=== PATIENT | male | born 1935 | race Caucasian/White ===

== ENCOUNTER 2017-07-04 19:31 | Emergency (ER) | payer MEDICARE, BC ==
[~2017-07-04] VITALS: Ht 175.3 cm; Wt 77.1 kg
[~2017-07-04 19:31] MED LIST: AMLO5 PO; AMOCLA875 PO; ASPI325EC PO; ASPI81EC PO; ATOR40TA PO; BUDE200IP IH; CEPH500 PO; CLIN300 PO; CLOP75 PO; CYAN1000 PO; DEPRESSION MED; DICL75ER PO; DIGO.25 PO; DOCU100 PO; DOES NOT KNOW MEDS; FENO160 PO; FLUO20 PO; HYDACE10B PO; HYDACE5 PO; ISOMON30 PO; LISI20 PO; LISI5 PO; LOPE2C PO; METCAR500 PO; METO100ER PO; METR500 PO; MIRT15 PO; MISO200 PO; MODA200 PO; NITR.4SL SL; NITR.6SL SL; OMEP20ER PO; OXYACE5T PO; OXYC5 PO; RANI150 PO; RANO500T PO; RXCEPH500 PO; RXHYDACE PO; SALS750 PO; SILSUL1TC TOP; SIMV20 PO; SIMV40 PO; TERA5 PO; VALD20 PO; WARF2.5 PO; WARF5 PO; [UNRECOGNIZED DRUG - REMARK]
[2017-07-04 20:00] LABS: BASOPHILS ABSOLUTE AUTO 0.02 K/mm3 (0.00-0.23); BASOPHILS PERCENT AUTO 0 % (0-2); EOSINOPHILS ABSOLUTE AUTO 0.27 K/mm3 (0.00-0.68); EOSINOPHILS PERCENT AUTO 4 % (0-6); Hematocrit 41.7 % (37.0-53.0); Hemoglobin 13.7 g/dL (13.5-17.5); IMMATURE GRAN ABSOLUTE AUTO 0.02 K/mm3 (0.00-0.10); IMMATURE GRAN PERCENT AUTO 0 % (0-1); LYMPHOCYTES ABSOLUTE AUTO 1.71 K/mm3 (0.84-5.20); LYMPHOCYTES PERCENT AUTO 23 % (21-46); MONOCYTES ABSOLUTE AUTO 0.67 K/mm3 (0.16-1.47); MONOCYTES PERCENT AUTO 9 % (4-13); Mean Corpuscular HGB 30.2 pg (26.0-34.0); Mean Corpuscular HGB Conc 32.9 g/dL (31.5-36.5); Mean Corpuscular Volume 92 fL (80-100); Mean Platelet Volume 10.1 fL (9.1-12.4); NEUTROPHILS ABSOLUTE AUTO 4.81 K/mm3 (1.96-9.15); NEUTROPHILS PERCENT AUTO 64 % (41-73); Platelet Count 129 K/mm3 (150-400); RDW Coefficient Variation 12.5 % (11.7-14.2); RDW Standard Deviation 42.3 fL (35.1-46.3); Red Blood Cell Count 4.53 M/mm3 (4.30-5.90)
[2017-07-04] MEDS ORDERED: Prozac20 MG (20:08)
[2017-07-04] MEDS ORDERED: PYRIDOXINE HCL100 MG PO (20:08)
[2017-07-04 20:19] LABS: Albumin, Blood 2.8 g/dL (3.4-5.0); Albumin/Globulin Ratio 0.7 (0.8-1.8); Bilirubin, Total 0.4 mg/dL (0.1-1.0); Bun/Creatinine Ratio 16.1 (12.0-20.0); Calcium, Blood 9.9 mg/dL (8.5-10.1); Creatinine, Blood 1.49 mg/dL (0.60-1.20); Potassium, Blood 3.9 mmol/L (3.5-5.5); Total Protein, Blood 6.8 g/dL (6.4-8.2); Troponin I 0.323 ng/mL (0.000-0.040)
[2017-07-04 20:58] LABS: Influenza A Negative (NEGATIVE); Influenza B Negative (NEGATIVE)
[2017-07-04] MEDS ORDERED: Augmentin 875-1 EACH PO (21:22)
[2017-07-04] MEDS ORDERED: PRED10 PO (21:22)
== END 2017-07-04 21:41 | disposition home or self-care (01) ==
LOC: ER 19:31
PROVIDERS: Emergency Medicine
DX: J32.9 Chronic sinusitis, unspecified (principal); J44.9 Chronic obstructive pulmonary disease, unspecified; J98.01 Acute bronchospasm; R79.89 Other specified abnormal findings of blood chemistry; I10 Essential (primary) hypertension; I25.10 Atherosclerotic heart disease of native coronary artery without angina pectoris; I48.0 Paroxysmal atrial fibrillation; E78.5 Hyperlipidemia, unspecified; Z87.891 Personal history of nicotine dependence; Z79.899 Other long term (current) drug therapy; Z79.01 Long term (current) use of anticoagulants
CPT/HCPCS: 36415; 70450; 71046; 71250; 80053; 84484; 85025; 87804; 93005; 93010; 94640; 96374; 99284; J2930

== ENCOUNTER 2019-04-10 11:43 | Emergency (ER) | payer OTHER, MEDICARE, BC ==
[~2019-04-10] VITALS: Ht 177.8 cm; Wt 81.7 kg
[~2019-04-10 11:43] MED LIST changes: +Augmentin 875-1 EACH PO; +PRED10 PO; +PYRIDOXINE HCL100 MG PO; +Prozac20 MG
[2019-04-10] MEDS ORDERED: CODEINE-GUAIFE120 ML PO (13:25)
== END 2019-04-10 13:32 | disposition home or self-care (01) ==
LOC: ER 11:43
DX: R05 Cough (principal); J44.9 Chronic obstructive pulmonary disease, unspecified; I10 Essential (primary) hypertension; I48.0 Paroxysmal atrial fibrillation; I25.810 Atherosclerosis of coronary artery bypass graft(s) without angina pectoris; N40.0 Benign prostatic hyperplasia without lower urinary tract symptoms; I25.2 Old myocardial infarction; E78.5 Hyperlipidemia, unspecified; Z79.899 Other long term (current) drug therapy
CPT/HCPCS: 99283

== ENCOUNTER 2019-11-20 10:56 | Emergency (ER) | payer OTHER, BC ==
[~2019-11-20] VITALS: Ht 177.8 cm; Wt 91.6 kg
[~2019-11-20 10:56] MED LIST changes: +CODEINE-GUAIFE120 ML PO; +ONDA4ODT MM
[2019-11-20] MEDS ORDERED: Ultram50 MG PO (15:01)
== END 2019-11-20 15:20 | disposition home or self-care (01) ==
LOC: ER 10:56
DX: M79.89 Other specified soft tissue disorders (principal); M79.671 Pain in right foot; Z79.899 Other long term (current) drug therapy; Z79.2 Long term (current) use of antibiotics; I11.0 Hypertensive heart disease with heart failure; I50.9 Heart failure, unspecified; I25.2 Old myocardial infarction; E11.9 Type 2 diabetes mellitus without complications; J44.9 Chronic obstructive pulmonary disease, unspecified; E78.5 Hyperlipidemia, unspecified
CPT/HCPCS: 73562-RT; 73600; 73630; 93971; 99284-25

== ENCOUNTER 2020-05-23 12:55 | Emergency (ER) | payer OTHER, BC ==
[~2020-05-23] VITALS: Ht 177.8 cm; Wt 81.7 kg
[~2020-05-23 12:55] MED LIST changes: +Ultram50 MG PO
[2020-05-23 13:25] LABS: BASOPHILS ABSOLUTE AUTO 0.04 K/mm3 (0.00-0.23); BASOPHILS PERCENT AUTO 1 % (0-2); EOSINOPHILS ABSOLUTE AUTO 0.22 K/mm3 (0.00-0.68); EOSINOPHILS PERCENT AUTO 3 % (0-6); Hematocrit 43.9 % (37.0-53.0); Hemoglobin 13.9 g/dL (13.5-17.5); IMMATURE GRAN ABSOLUTE AUTO 0.03 K/mm3 (0.00-0.10); IMMATURE GRAN PERCENT AUTO 0 % (0-1); LYMPHOCYTES ABSOLUTE AUTO 1.41 K/mm3 (0.84-5.20); LYMPHOCYTES PERCENT AUTO 18 % (21-46); MONOCYTES ABSOLUTE AUTO 0.67 K/mm3 (0.16-1.47); MONOCYTES PERCENT AUTO 8 % (4-13); Mean Corpuscular HGB 29.9 pg (26.0-34.0); Mean Corpuscular HGB Conc 31.7 g/dL (31.5-36.5); Mean Corpuscular Volume 94 fL (80-100); Mean Platelet Volume 9.8 fL (9.1-12.4); NEUTROPHILS ABSOLUTE AUTO 5.59 K/mm3 (1.96-9.15); NEUTROPHILS PERCENT AUTO 70 % (41-73); Platelet Count 200 K/mm3 (150-400); RDW Coefficient Variation 12.8 % (11.7-14.2); RDW Standard Deviation 43.6 fL (35.1-46.3); Red Blood Cell Count 4.65 M/mm3 (4.30-5.90); White Blood Cell Count 7.96 K/mm3 (4.00-11.30)
[2020-05-23 13:44] LABS: Albumin, Blood 3.1 g/dL (3.4-5.0); Albumin/Globulin Ratio 0.8 (0.8-1.8); Bilirubin, Total 0.5 mg/dL (0.1-1.0); Calcium, Blood 10.7 mg/dL (8.5-10.1); Creatinine, Blood 1.27 mg/dL (0.60-1.20); Globulin, Blood 4.1 g/dL (2.2-4.0); Potassium, Blood 3.8 mmol/L (3.5-5.5); Total Protein, Blood 7.2 g/dL (6.4-8.2); Troponin I 0.077 ng/mL (0.000-0.040)
[2020-05-23 14:34] LABS: Source, Urine Clean Catch
[2020-05-23 14:49] LABS: Appearance, Urine Clear (Clear); Blood, Urine Neg (Neg); Color, Urine Yellow (P-Yellow); Glucose Qualitative, Urine Neg (Neg); Ketones, Urine Neg (Neg); Leukocyte Esterase, Urine 1+ (Neg); Nitrite, Urine Neg (Neg); Protein, Urine 2+ (Neg); Urobilinogen, Urine 1+ (Normal)
[2020-05-23 14:56] LABS: Bilirubin, Urine 1+ (Neg)
[2020-05-23 14:58] LABS: Calcium Oxalate Crystals Mod /hpf; Mucus Mod (0-Heavy)
[2020-05-23 14:59] LABS: Red Blood Cells, Urine 0-2 /hpf (0-2); White Blood Cells, Urine 0-2 /hpf (0-5)
[2020-05-23 15:00] LABS: Bacteria Mod /hpf; Hyaline Casts 0-2 /lpf (0-2); Squamous Epithelial Cells Not Seen /hpf (Few)
== END 2020-05-23 16:57 | disposition left against medical advice (07) ==
LOC: ER 12:55
PROVIDERS: Emergency Medicine
DX: R55 Syncope and collapse (principal); Z53.21 Procedure and treatment not carried out due to patient leaving prior to being seen by health care provider
CPT/HCPCS: 36415; 71046; 80053; 81001; 83880; 84484; 85025; 87086; 93005; 93010

== ENCOUNTER 2020-05-27 17:08 | Emergency (ER) | payer OTHER, BC ==
[~2020-05-27] VITALS: Ht 172.7 cm; Wt 81.7 kg
[2020-05-27 17:42] LABS: BASOPHILS ABSOLUTE AUTO 0.02 K/mm3 (0.00-0.23); BASOPHILS PERCENT AUTO 0 % (0-2); EOSINOPHILS ABSOLUTE AUTO 0.18 K/mm3 (0.00-0.68); EOSINOPHILS PERCENT AUTO 3 % (0-6); Hematocrit 39.2 % (37.0-53.0); Hemoglobin 12.4 g/dL (13.5-17.5); IMMATURE GRAN ABSOLUTE AUTO 0.01 K/mm3 (0.00-0.10); IMMATURE GRAN PERCENT AUTO 0 % (0-1); LYMPHOCYTES ABSOLUTE AUTO 1.31 K/mm3 (0.84-5.20); LYMPHOCYTES PERCENT AUTO 22 % (21-46); MONOCYTES PERCENT AUTO 10 % (4-13); Mean Corpuscular HGB 29.6 pg (26.0-34.0); Mean Corpuscular HGB Conc 31.6 g/dL (31.5-36.5); Mean Corpuscular Volume 94 fL (80-100); Mean Platelet Volume 10.1 fL (9.1-12.4); NEUTROPHILS PERCENT AUTO 65 % (41-73); Platelet Count 178 K/mm3 (150-400); RDW Coefficient Variation 12.5 % (11.7-14.2); RDW Standard Deviation 43.5 fL (35.1-46.3); Red Blood Cell Count 4.19 M/mm3 (4.30-5.90); White Blood Cell Count 6.02 K/mm3 (4.00-11.30)
[2020-05-27 17:55] LABS: Albumin, Blood 2.9 g/dL (3.4-5.0); Albumin/Globulin Ratio 0.8 (0.8-1.8); Bilirubin, Total 0.4 mg/dL (0.1-1.0); Bun/Creatinine Ratio 12.1 (12.0-20.0); Calcium, Blood 10.2 mg/dL (8.5-10.1); Creatinine, Blood 1.4 mg/dL (0.60-1.20); Globulin, Blood 3.7 g/dL (2.2-4.0); Potassium, Blood 4.5 mmol/L (3.5-5.5); Total Protein, Blood 6.6 g/dL (6.4-8.2)
[2020-05-27] MEDS ORDERED: ELIQUIS2.5 MG PO (18:39)
[2020-05-27] MEDS ORDERED: ATOR20 PO (18:39)
[2020-05-27] MEDS ORDERED: CARVEDILOL12.5 MG PO (18:40)
[2020-05-27] MEDS ORDERED: THERA-D2000 UNIT PO (18:40)
[2020-05-27] MEDS ORDERED: ONDA4ODT MM (18:41)
[2020-05-27] MEDS ORDERED: PANT40 PO (18:41)
[2020-05-27] MEDS ORDERED: PREG100 PO (18:42)
[2020-05-27] MEDS ORDERED: SALONPAS PATCH1 EACH TOP (18:47)
== END 2020-05-27 20:09 | disposition home or self-care (01) ==
LOC: ER 17:08
PROVIDERS: Emergency Medicine
DX: R55 Syncope and collapse (principal); K62.5 Hemorrhage of anus and rectum; I11.0 Hypertensive heart disease with heart failure; J44.9 Chronic obstructive pulmonary disease, unspecified; E78.00 Pure hypercholesterolemia, unspecified; Z79.51 Long term (current) use of inhaled steroids; Z79.899 Other long term (current) drug therapy; Z79.01 Long term (current) use of anticoagulants
CPT/HCPCS: 80053; 83690; 85025; 93005; 93010; 96374; 99284-25; C9113

== ENCOUNTER 2020-06-03 10:11 | Day surgery (SDC) | payer OTHER, BC ==
[~2020-06-03] VITALS: Ht 177.8 cm; Wt 78.4 kg
[~2020-06-03 10:11] MED LIST changes: +ATOR20 PO; +CARVEDILOL12.5 MG PO; +ELIQUIS2.5 MG PO; +PANT40 PO; +PREG100 PO; +SALONPAS PATCH1 EACH TOP; +THERA-D2000 UNIT PO
== END 2020-06-03 12:13 | disposition home or self-care (01) ==
LOC: ORSCSDS 10:11
PROVIDERS: Internal Medicine Gastroenterology
PROC: 0DBL8ZX Excision of Transverse Colon, Via Natural or Artificial Opening Endoscopic, Diagnostic (ICD-10-PCS; principal; 2020-06-03 11:45)
DX: K62.5 Hemorrhage of anus and rectum (principal); K62.6 Ulcer of anus and rectum; D12.3 Benign neoplasm of transverse colon; K57.30 Diverticulosis of large intestine without perforation or abscess without bleeding; R93.89 Abnormal findings on diagnostic imaging of other specified body structures; I48.91 Unspecified atrial fibrillation; I25.2 Old myocardial infarction; J44.9 Chronic obstructive pulmonary disease, unspecified; G47.33 Obstructive sleep apnea (adult) (pediatric); Z79.01 Long term (current) use of anticoagulants; Z79.899 Other long term (current) drug therapy
CPT/HCPCS: 88305; J2370; J2704; J7120

== ENCOUNTER 2020-07-03 09:38 | Day surgery (SDC) | payer OTHER, BC ==
[~2020-07-03] VITALS: Ht 177.8 cm; Wt 79.7 kg
== END 2020-07-03 11:52 | disposition home or self-care (01) ==
LOC: ORSCSDS 09:38
PROVIDERS: Internal Medicine Gastroenterology
PROC: 0DBP8ZX Excision of Rectum, Via Natural or Artificial Opening Endoscopic, Diagnostic (ICD-10-PCS; principal; 2020-07-03 10:45)
DX: R93.3 Abnormal findings on diagnostic imaging of other parts of digestive tract (principal); K62.6 Ulcer of anus and rectum; K64.8 Other hemorrhoids; I10 Essential (primary) hypertension; Z79.01 Long term (current) use of anticoagulants; Z79.82 Long term (current) use of aspirin; Z79.899 Other long term (current) drug therapy
CPT/HCPCS: 88305; J2704; J7120

== ENCOUNTER 2020-10-21 08:24 | Day surgery (SDC) | payer OTHER, BC ==
[~2020-10-21] VITALS: Ht 175.3 cm; Wt 81.0 kg
[2020-10-21] MEDS ORDERED: Isosorbide Mono30 MG PO (09:07)
[2020-10-21] MEDS ORDERED: Prozac40 MG PO (09:07)
[2020-10-21] MEDS ORDERED: METO25ER PO (09:08)
[2020-10-21] MEDS ORDERED: MECL25 PO (09:08)
[2020-10-21] MEDS ORDERED: ROSU10TA PO (09:08)
--- NOTE | 2020-10-21 09:34 | NUR ---
LUNG TONES COARSE ALL SOLARES WITH CONGESTED COUGH. PT DENIES CP. CALL LIGHT IN REACH.
--- NOTE | 2020-10-21 14:05 | NUR ---
PT RETURNED TO RECOVERY ROOM IN BED. RIGHT GROIN SITE SOFT NON-TENDER WITH NO HEMATOMA, NO PULSATILE BLEEDING WITH INTACT DRESSING/ERLINDA WITH SLIGHT TRACK OOZING NOTED. CALL LIGHT IN REACH.
--- NOTE | 2020-10-21 14:06 | NUR ---
SP02 PROBE ON RIGHT TOE.
--- NOTE | 2020-10-21 16:06 | NUR ---
patient resing, responds appropriately, right groin soft and nontender. dressing dry and intact. pulses 2+
--- NOTE | 2020-10-21 16:22 | NUR ---
Dr Daniels here to speak to patient and assess site. Ok to get patient up at 6PM and ambulate.
--- NOTE | 2020-10-21 16:32 | NUR ---
Home Health notified of referral from Dr Daniels for patient.
--- NOTE | 2020-10-21 16:45 | NUR ---
PHONED PATIENTS WITH AND UPDATE. GAVE HER DISCHARGE INFORAMTION OVER THE PHONE. QUESTIONS ANSWERED.
--- NOTE | 2020-10-21 17:01 | NUR ---
HOB NOW UP TO 40 DEGREE ANGLE. PATIENT WATCHING TV. RIGHT GROIN SITE UNCHANGED. DP AND TP 2-2+.
--- NOTE | 2020-10-21 18:04 | NUR ---
PATIENT AMBULATED IN RECOVERY ROOM AND RETURNED TO BED. RIGHT GROIN SITE UNCHANGED
--- NOTE | 2020-10-21 18:15 | NUR ---
PATIENT AMBULATED IN RECOVERY ROOM AND IN HALLWAY. RIGHT GROIN SITE UNCHANGED
--- NOTE | 2020-10-21 18:27 | NUR ---
PATIENT UP AND DRESSED. PATIENT VERBALIZED UNDERSTANDING OF DISCHARGEV INSTRUCTIONS AND PRECAUTIONS. RIGHT GROIN SITE REMAINS SOFT AND NONTENDER. DR DUQUE IN TO CHECK.
--- NOTE | 2020-10-21 18:30 | NUR ---
IV SITE DCED BY SHON CARVALHO. CATHETER INTACT. TRANFERRED TO WHEEL CHAIR AND TAKEN TO IN WAITING CAR BY SHON CARVALHO
== END 2020-10-21 18:30 | disposition home or self-care (01) ==
LOC: MHTC 08:24
DX: I25.118 Atherosclerotic heart disease of native coronary artery with other forms of angina pectoris (principal); R06.02 Shortness of breath; R05 Cough; I13.0 Hypertensive heart and chronic kidney disease with heart failure and stage 1 through stage 4 chronic kidney disease, or unspecified chronic kidney disease; I50.9 Heart failure, unspecified; N18.9 Chronic kidney disease, unspecified; N40.0 Benign prostatic hyperplasia without lower urinary tract symptoms; E78.00 Pure hypercholesterolemia, unspecified; I25.5 Ischemic cardiomyopathy; I34.0 Nonrheumatic mitral (valve) insufficiency; G47.33 Obstructive sleep apnea (adult) (pediatric); I48.0 Paroxysmal atrial fibrillation; Z95.1 Presence of aortocoronary bypass graft; Z79.01 Long term (current) use of anticoagulants
CPT/HCPCS: 76937; 93005; 93010; 93455; 99152; 99153; C1769; C1894; J2250; J3010; J7030; J7040; J7050; Q9967

== ENCOUNTER 2021-02-25 14:20 | Emergency (ER) | payer OTHER, BC ==
[~2021-02-25] VITALS: Ht 177.8 cm; Wt 81.7 kg
[~2021-02-25 14:20] MED LIST changes: +Isosorbide Mono30 MG PO; +MECL25 PO; +METO25ER PO; +Prozac40 MG PO; +ROSU10TA PO
[2021-02-25 14:56] LABS: BASOPHILS ABSOLUTE AUTO 0.02 K/mm3 (0.00-0.23); BASOPHILS PERCENT AUTO 1 % (0-2); EOSINOPHILS ABSOLUTE AUTO 0.13 K/mm3 (0.00-0.68); EOSINOPHILS PERCENT AUTO 4 % (0-6); Hematocrit 30.3 % (37.0-53.0); Hemoglobin 9.3 g/dL (13.5-17.5); IMMATURE GRAN PERCENT AUTO 0 % (0-1); LYMPHOCYTES PERCENT AUTO 25 % (21-46); MONOCYTES ABSOLUTE AUTO 0.39 K/mm3 (0.16-1.47); MONOCYTES PERCENT AUTO 11 % (4-13); Mean Corpuscular HGB Conc 30.7 g/dL (31.5-36.5); Mean Corpuscular Volume 88 fL (80-100); Mean Platelet Volume 10.1 fL (9.1-12.4); NEUTROPHILS ABSOLUTE AUTO 2.23 K/mm3 (1.96-9.15); NEUTROPHILS PERCENT AUTO 61 % (41-73); Platelet Count 161 K/mm3 (150-400); RDW Coefficient Variation 15.5 % (11.7-14.2); RDW Standard Deviation 49.9 fL (35.1-46.3); Red Blood Cell Count 3.44 M/mm3 (4.30-5.90); White Blood Cell Count 3.67 K/mm3 (4.00-11.30)
[2021-02-25 15:19] LABS: Albumin, Blood 2.7 g/dL (3.4-5.0); Albumin/Globulin Ratio 0.8 (0.8-1.8); Bilirubin, Total 0.4 mg/dL (0.1-1.0); Bun/Creatinine Ratio 12.1 (12.0-20.0); Calcium, Blood 10.1 mg/dL (8.5-10.1); Creatinine, Blood 1.41 mg/dL (0.60-1.20); Globulin, Blood 3.6 g/dL (2.2-4.0); Potassium, Blood 3.6 mmol/L (3.5-5.5); Total Protein, Blood 6.3 g/dL (6.4-8.2); Troponin I 0.09 ng/mL (0.000-0.040)
== END 2021-02-25 16:16 | disposition home or self-care (01) ==
LOC: ER 14:20
PROVIDERS: Emergency Medicine
DX: R55 Syncope and collapse (principal); E86.0 Dehydration; I11.0 Hypertensive heart disease with heart failure; I50.9 Heart failure, unspecified; I25.2 Old myocardial infarction; E11.9 Type 2 diabetes mellitus without complications; E78.5 Hyperlipidemia, unspecified; J44.9 Chronic obstructive pulmonary disease, unspecified; Z79.899 Other long term (current) drug therapy
CPT/HCPCS: 80053; 84484; 85025; 93005; 93010; 99285-25

== ENCOUNTER 2023-02-03 16:15 | Emergency (ER) | payer OTHER, BC ==
[~2023-02-03] VITALS: Ht 180.3 cm; Wt 80.7 kg
[2023-02-03 16:54] LABS: BASOPHILS ABSOLUTE AUTO 0.02 K/mm3 (0.00-0.23); BASOPHILS PERCENT AUTO 0 % (0-2); EOSINOPHILS ABSOLUTE AUTO 0.07 K/mm3 (0.00-0.68); EOSINOPHILS PERCENT AUTO 1 % (0-6); Hematocrit 49.1 % (37.0-53.0); Hemoglobin 16.6 g/dL (13.5-17.5); IMMATURE GRAN ABSOLUTE AUTO 0.01 K/mm3 (0.00-0.10); IMMATURE GRAN PERCENT AUTO 0 % (0-1); LYMPHOCYTES ABSOLUTE AUTO 1.99 K/mm3 (0.84-5.20); LYMPHOCYTES PERCENT AUTO 30 % (21-46); MONOCYTES ABSOLUTE AUTO 0.79 K/mm3 (0.16-1.47); MONOCYTES PERCENT AUTO 12 % (4-13); Mean Corpuscular HGB 30.8 pg (26.0-34.0); Mean Corpuscular HGB Conc 33.8 g/dL (31.5-36.5); Mean Corpuscular Volume 91 fL (80-100); Mean Platelet Volume 10.2 fL (9.1-12.4); NEUTROPHILS ABSOLUTE AUTO 3.66 K/mm3 (1.96-9.15); NEUTROPHILS PERCENT AUTO 56 % (41-73); Platelet Count 163 K/mm3 (150-400); RDW Coefficient Variation 12.9 % (11.7-14.2); RDW Standard Deviation 43.5 fL (35.1-46.3); Red Blood Cell Count 5.39 M/mm3 (4.30-5.90); White Blood Cell Count 6.54 K/mm3 (4.00-11.30)
[2023-02-03] MEDS ORDERED: FINA5 PO (17:00)
[2023-02-03 17:02] LABS: Albumin, Blood 3.7 g/dL (3.4-5.0); Albumin/Globulin Ratio 0.9 (0.8-1.8); Bilirubin, Total 0.8 mg/dL (0.1-1.0); Bun/Creatinine Ratio 15.9 (12.0-20.0); Calcium, Blood 11.6 mg/dL (8.5-10.1); Creatinine, Blood 1.45 mg/dL (0.60-1.20); Globulin, Blood 3.9 g/dL (2.2-4.0); Potassium, Blood 4.1 mmol/L (3.5-5.5); Total Protein, Blood 7.6 g/dL (6.4-8.2)
[2023-02-03] MEDS ORDERED: DULOXETINE HCL60 M1 PO (17:04)
[2023-02-03] MEDS ORDERED: ATORVASTATIN CA20 MG PO (17:04)
[2023-02-03] MEDS ORDERED: BUPROPION XL150 M1 PO (17:05)
[2023-02-03 17:23] LABS: Source, Urine Clean Catch
[2023-02-03 17:40] LABS: Appearance, Urine Clear (Clear); Bilirubin, Urine Neg (Neg); Blood, Urine Neg (Neg); Color, Urine Amber (P-Yellow); Glucose Qualitative, Urine Neg (Neg); Ketones, Urine Neg (Neg); Leukocyte Esterase, Urine Neg (Neg); Nitrite, Urine Neg (Neg); Protein, Urine 2+ (Neg); Urobilinogen, Urine 1+ (Normal)
[2023-02-03 18:00] VITALS: BP 173/90
[2023-02-03 18:11] LABS: Bacteria Many /hpf; Calcium Oxalate Crystals Few /hpf; Mucus Light (0-Heavy); Squamous Epithelial Cells Rare /hpf (Few)
[2023-02-03] MEDS ORDERED: CEFD300 PO (18:48)
== END 2023-02-03 19:15 | disposition home or self-care (01) ==
LOC: ER 16:15
PROVIDERS: Emergency Medicine
DX: R41.0 Disorientation, unspecified (principal); N39.0 Urinary tract infection, site not specified; I48.91 Unspecified atrial fibrillation; I25.2 Old myocardial infarction; I11.0 Hypertensive heart disease with heart failure; I50.9 Heart failure, unspecified; E11.9 Type 2 diabetes mellitus without complications; E78.5 Hyperlipidemia, unspecified; Z79.01 Long term (current) use of anticoagulants; Z79.51 Long term (current) use of inhaled steroids; Z79.899 Other long term (current) drug therapy
CPT/HCPCS: 70450; 80053; 81001; 85025; A9270